=== PATIENT | male | born 1975 | race Caucasian/White ===

== ENCOUNTER 2016-10-27 13:11 | Emergency (ER) | payer SELFPAY ==
[~2016-10-27] VITALS: Ht 162.6 cm; Wt 77.5 kg
[~2016-10-27 13:11] MED LIST: CHLO25CA9 PO; CHLO5CAP2 PO; FAMO-96 PO; FAMO20TA18 PO; IBUP-1542 PO; LORA1TAB PO; OMEP20CA16 PO; ONDA-43 PO; ONDA4TAB14 PO; ONDA4TAB35 PO; ONDA4TAB8 PO; ONDA8TAB14 PO; PANT40TA3 PO; RANI150T9 PO
[2016-10-27 13:17] VITALS: Ht 162.6 cm; Wt 77.5 kg
[2016-10-27] MEDS ORDERED: ONDANSETRON 4 MG INJ IV STA (13:49)
[2016-10-27] MEDS ORDERED: SOD CHLORIDE 0.9% 1,000 ML IV ONE (14:00)
[2016-10-27] MEDS ORDERED: LORAZEPAM 1 MG TAB PO ONE (14:00)
[2016-10-27 14:11] LABS: BASOPHILS % 0.3 % (0.0-2.0); EOSINOPHILS % 0.3 % (0.0-7.0); HEMATOCRIT 47.2 % (42.0-52.0); HEMOGLOBIN 16.3 g/dl (14.0-18.0); MEAN CORPUSCULAR HEMOGLOBIN 28.1 pg (29.0-33.0); MEAN CORPUSCULAR HGB CONC 34.5 g/dl (32.0-37.0); MEAN CORPUSCULAR VOLUME 81.4 fl (82.0-101.0); MEAN PLATELET VOLUME 10.8 fl (7.4-10.4); MONOCYTE # 0.7 10^3/ul (0.3-0.9); NEUTROPHIL # 8.9 10^3/ul (1.6-7.5); NEUTROPHILS % 76.2 % (39.0-77.0); PLATELET COUNT 316 10^3/UL (140-415); RED CELL DISTRIBUTION WIDTH 13.7 % (11.5-14.5); WHITE BLOOD COUNT 11.6 10^3/ul (4.8-10.8)
[2016-10-27 14:31] LABS: ALBUMIN/GLOBULIN RATIO 1.38; BILIRUBIN,INDIRECT 1.1 mg/dl (0-1.1); BILIRUBIN,TOTAL 1.1 mg/dl (0.2-1.3); CALCIUM 9.5 mg/dl (8.4-10.2); CREATININE 0.94 mg/dl (0.61-1.24); POTASSIUM 4.1 mmol/L (3.5-5.1); TOTAL PROTEIN 8.6 g/dl (6.1-8.1)
--- NOTE | 2016-10-27 16:09 | RADRPT ---
PROCEDURE: XR Chest. CLINICAL INDICATION: Chest pain. TECHNIQUE: Single frontal chest x-ray. COMPARISON: 05/04/2015 FINDINGS: The lungs are clear. No focal opacification is seen. No pneumothorax or pleural effusion is seen. The cardiomediastinal silhouette is unremarkable. The osseous structures are grossly unremarkable. IMPRESSION: No evidence of acute cardiopulmonary disease. RPTAT: QQ .Rhys Hollins MD, MD Date Time Electronically viewed and signed by .Rhys Hollins MD, on 10/27/2016 16:08 .A/
--- NOTE | 2016-10-27 16:12 | ERD ---
ER Documentation Chief Complaint Date/Time DATE: 10/27/16 TIME: 16:11 Chief Complaint VOMITING , WHITE, YELLOW COLOR X2 DAYS ROS All systems reviewed and are negative except as per history of present illness. Medications Home Meds Active Scripts Electrolyte,Oral (Pedialyte) 1,000 Ml Solution, 100 ML PO Q6 Y for VOMITTING, # 1000 ML Prov:ANUJ ELLINGTON PA-C 10/27/16 Ondansetron Hcl* (Zofran*) 4 Mg Tablet, 4 MG PO Q6H for NAUSEA AND/OR VOMITING, #30 TAB Prov:ANUJ ELLINGTON PA-C 10/27/16 Famotidine* (Pepcid*) 20 Mg Tablet, 20 MG PO BID for 14 Days, TAB Prov:ANUJ ELLINGTON PA-C 10/27/16 Acetaminophen* (Tylophen*) 500 Mg Capsule, 1 CAP PO Q6H Y for PAIN AND OR ELEVATED TEMP, #30 CAP Prov:ANUJ ELLINGTON PA-C 10/27/16 Ibuprofen* (Motrin*) 600 Mg Tab, 600 MG PO Q6H Y for PAIN AND OR ELEVATED TEMP, #30 TAB Prov:ALICE YOUNG NP 09/14/15 Lorazepam* (Lorazepam*) 1 Mg Tablet, 1 MG PO Q8H Y for ANXIETY, #10 TAB Prov:ANTOLIN MULLINS DO 07/01/15 Ondansetron Hcl* (Zofran* ODT) 4 mg -ODT Tab.disper, 4 MG PO Q6 Y for NAUSEA AND /OR VOMITING, #10 TAB Prov:ANTOLIN MULLINS DO 07/01/15 Reported Medications Chlordiazepoxide* (Chlordiazepoxide*) 5 Mg Capsule, 5 MG PO DAILY, CAP 05/04/15 Allergies Allergies: Coded Allergies: No Known Allergy (Unverified , 10/27/16) PMhx/Soc History of Surgery: Yes (appendectomy 2004 [facility]) Anesthesia Reaction: No Hx Neurological Disorder: No Hx Respiratory Disorders: No Hx Cardiac Disorders: Yes (HTN) Hx Psychiatric Problems: Yes (depression) Hx Miscellaneous Medical Probl: Yes (ETOH dependent) Hx Alcohol Use: Yes (daily beer (average 12 beers/day) x 5 years) Hx Substance Use: No Hx Tobacco Use: No Physical Exam Vitals Vital Signs Date Time Temp Pulse Resp B/P Pulse Ox O2 Delivery O2 Flow Rate FiO2 10/27/16 13:17 97.5 112 20 144/89 96 Physical Exam Const: [] Head: Atraumatic Eyes: Normal Conjunctiva ENT: Normal External Ears, Nose and Mouth. Neck: Full range of motion..~ No meningismus. Resp: Clear to auscultation bilaterally Cardio: Regular rate and rhythm, no murmurs Abd: Soft, non tender, non distended. Normal bowel sounds Skin: No petechiae or rashes Back: No midline or flank tenderness Ext: No cyanosis, or edema Neur: Awake and alert Psych: Normal Mood and Affect Result Diagram: 10/27/16 1400 10/27/16 1400 Results 24 hrs Laboratory Tests Test 10/27/16 14:00 White Blood Count 11.610^3/ul Red Blood Count 5.8010^6/ul Hemoglobin 16.3g/dl Hematocrit 47.2% Mean Corpuscular Volume 81.4fl Mean Corpuscular Hemoglobin 28.1pg Mean Corpuscular Hemoglobin Concent 34.5g/dl Red Cell Distribution Width 13.7% Platelet Count 23705^3/UL Mean Platelet Volume 10.8fl Neutrophils % 76.2% Lymphocytes % 17.0% Monocytes % 6.0% Eosinophils % 0.3% Basophils % 0.3% Nucleated Red Blood Cells % 0.0/100WBC Neutrophils # 8.910^3/ul Lymphocytes # 2.010^3/ul Monocytes # 0.710^3/ul Eosinophils # 0.010^3/ul Basophils # 0.010^3/ul Nucleated Red Blood Cells # 0.010^3/ul Sodium Level 145mmol/L Potassium Level 4.1mmol/L Chloride Level 106mmol/L Carbon Dioxide Level 23mmol/L Anion Gap 20 Blood Urea Nitrogen 9mg/dl Creatinine 0.94mg/dl Glucose Level 103mg/dl Calcium Level 9.5mg/dl Total Bilirubin 1.1mg/dl Direct Bilirubin 0.00mg/dl Indirect Bilirubin 1.1mg/dl Aspartate Amino Transf (AST/SGOT) 53IU/L Alanine Aminotransferase (ALT/SGPT) 61IU/L Alkaline Phosphatase 119IU/L Troponin I < 0.012ng/ml Total Protein 8.6g/dl Albumin 5.0g/dl Globulin 3.60g/dl Albumin/Globulin Ratio 1.38 Lipase 58U/L Current Medications Medications (Trade) Dose Ordered Sig/Bessy Route PRN Reason Start Time Stop Time Status Last Admin Dose Admin Sodium Chloride (NS) 1,000 ml @ 1,000 mls/hr Q1H ONCE IV 10/27/16 14:00 10/27/16 14:59 DC 10/27/16 14:07 Ondansetron HCl (Zofran Inj) 4 mg ONCE STAT IV 10/27/16 13:49 10/27/16 13:51 DC 10/27/16 14:07 Lorazepam (Ativan) 1 mg ONCE ONCE PO 10/27/16 14:00 10/27/16 14:01 DC 10/27/16 14:07 DIAGNOSTIC IMAGING REPORT Patient: VAHE KRAFT : 1975 Age: 41 Sex: M MR #: [id number] DOS: 10/27/16 0000 Ordering MD: ANUJ ELLINGTON PA-C Location: [facility] Room/Bed: PROCEDURE: XR Chest. CLINICAL INDICATION: Chest pain. TECHNIQUE: Single frontal chest x-ray. COMPARISON: 05/04/2015 FINDINGS: The lungs are clear. No focal opacification is seen. No pneumothorax or pleural effusion is seen. The cardiomediastinal silhouette is unremarkable. The osseous structures are grossly unremarkable. IMPRESSION: No evidence of acute cardiopulmonary disease. RPTAT: QQ .Rhys Hollins MD, MD Date Time Electronically viewed and signed by .Rhys Hollins MD, MD on 10/27/2016 16:08 .A/ CC: ANUJ ELLINGTON PA-C Procedures/MDM Laboratory workupShows a mildly elevated white blood cell count. He is not anemic. Platelets are within normal limits. Sodium is very mildly elevated otherwise electrolytes are within normal limits. Glucose is normal limits. Liver enzymes are very mildly elevated. Lipase is negative. Upon and is negative. Low suspicion for acute PA. EKG read and interpreted by Dr. Mullins. [address] elevation. No QT prolongation. Normal sinus rhythm. Chest x ray is negative. Low suspicion for PE, pericarditis, pleural effusion, pneumothorax. Patient symptoms at this time most consistent with nausea and vomiting and epigastric pain possibly related to alcohol abuse versus gastritis, This is also likely the source of his chest pain. Patient is afebrile and otherwise well-appearing. There is no evidence of pancreatitis. Patient given IV fluids, Zofran here in the emergency department. He was given p.o. Ativan. and a p.o. challenge. Patient was asking for water. Jenniferne will be a given a prescription for Zofran, , Pedialyte, pepcid and Tylenol for home. I will not send the patient home with benzodiazepines given my concern for abuse. Patient has no evidence of DTs at this time and I do not feel that he requires admission at this time. Patient did indicate that he does go to but is recently had a setback. At this time the patient is stable for discharge and outpatient management. Patient should follow up with their PCP in the next 1-2 days. They may return to the emergency department sooner for any persistent or worsening of symptoms. Patient understood and agreed with the plan. Discussed the patient with Dr. Mullins and he is in agreement with the plan. Departure Diagnosis: Primary Impression: Nausea & vomiting Vomiting type: unspecified Vomiting Intractability: non-intractable Qualified Code: R11.2 - Non-intractable vomiting with nausea, unspecified vomiting type Additional Impression: Chest pain Chest pain type: unspecified Qualified Code: R07.9 - Chest pain, unspecified type Condition: ANUJ Wong PA-C Oct 27, 2016 16:12
[2016-10-27] MEDS ORDERED: FAMO-96 PO (16:39)
[2016-10-27] MEDS ORDERED: ACET500C5 PO (16:39)
[2016-10-27] MEDS ORDERED: ONDA4TAB8 PO (16:40)
[2016-10-27] MEDS ORDERED: ELEC100080 PO (16:40)
== END 2016-10-27 17:45 | disposition home or self-care (01) ==
LOC: FTE 13:11
DX: R11.2 Nausea with vomiting, unspecified (principal); R07.9 Chest pain, unspecified; I10 Essential (primary) hypertension
CPT/HCPCS: 36415; 71010; 80053; 83690; 84484; 85025; 93005; 96374; 99285; J2405; J7030

== ENCOUNTER 2016-12-07 20:51 | Emergency (ER) | payer SELFPAY ==
[~2016-12-07] VITALS: Ht 172.7 cm; Wt 78.0 kg
[~2016-12-07 20:51] MED LIST changes: +ACET500C5 PO; +ELEC100080 PO
[2016-12-07 20:59] VITALS: Ht 172.7 cm; Wt 78.0 kg
[2016-12-08] MEDS ORDERED: FAMOTIDINE 20 MG TAB PO STA (01:16)
[2016-12-08] MEDS ORDERED: SOD CHLORIDE 0.9% 1,000 ML IV STA (01:16)
[2016-12-08] MEDS ORDERED: LIDOCAINE/MYLANTA 40 ML BTL PO STA (01:16)
[2016-12-08] MEDS ORDERED: BELLADONNA/PHENOBARBITAL TAB PO STA (01:16)
--- NOTE | 2016-12-08 02:06 | RADRPT ---
PROCEDURE: XR Chest. CLINICAL INDICATION: Abdominal pain. TECHNIQUE: Single frontal view of the chest. COMPARISON: 12/08/2016. FINDINGS: The cardiomediastinal silhouette is within normal limits. Mild elevation of the right hemidiaphragm. Decreased lung inflation over interval accentuates the cardiac silhouette and pulmonary vascular ma rkings. The lungs are clear. No signs of pleural fluid or pneumothorax are seen. The osseous structu res and soft tissues are unremarkable. IMPRESSION: No evidence for active cardiopulmonary disease. RPTAT: [facility] Physician Ross Date Time Electronically viewed and signed by Physician Ross on 12/08/2016 02:05 RS/
--- NOTE | 2016-12-08 03:10 | ERD ---
ER Documentation Chief Complaint Chief Complaint etoh intoxication, vomiting, diarrhea HPI 41-year-old man with history of alcoholism for intoxication, he admits to drinking alcohol and has complaints of epigastric abdominal pain, burning, vomiting. He denies blood per rectum or melena, no fevers or chills, no chest pain or shortness of breath. ROS All systems reviewed and are negative except as per history of present illness. Medications Home Meds Active Scripts Omeprazole* (Omeprazole*) 20 Mg Capsule.dr, 20 MG PO DAILY, #30 Prov:BAUTISTA MORSE MD 12/08/16 Famotidine* (Famotidine*) 40 Mg Tablet, 40 MG PO HS, #30 TAB Prov:BAUTISTA MORSE MD 12/08/16 Mag Hydrox/Al Hydrox/Simeth (Maalox Advanced Suspension) 355 Ml Oral.susp, 2 TSP PO TID for PAIN, #24 OZ Prov:BAUTISTA MORSE MD 12/08/16 Acetaminophen* (Tylophen*) 500 Mg Capsule, 1 CAP PO Q6H Y for PAIN AND OR ELEVATED TEMP, #30 CAP Prov:ANUJ ELLINGTON PA-C 10/27/16 Discontinued Reported Medications Chlordiazepoxide* (Chlordiazepoxide*) 5 Mg Capsule, 5 MG PO DAILY, CAP 05/04/15 Discontinued Scripts Electrolyte,Oral (Pedialyte) 1,000 Ml Solution, 100 ML PO Q6 Y for VOMITTING, # 1000 ML Prov:ANUJ ELLINGTON PA-C 10/27/16 Ondansetron Hcl* (Zofran*) 4 Mg Tablet, 4 MG PO Q6H for NAUSEA AND/OR VOMITING, #30 TAB Prov:ANUJ ELLINGTON PA-C 10/27/16 Famotidine* (Pepcid*) 20 Mg Tablet, 20 MG PO BID for 14 Days, TAB Prov:ANUJ ELLINGTON PA-C 10/27/16 Famotidine* (Famotidine*) 20 Mg Tablet, 20 MG PO BID, #60 TAB Prov:CHANTELLE POOL 08/16/16 Ondansetron Hcl* (Zofran*) 4 Mg Tab, 4 MG PO Q4H Y for NAUSEA AND OR VOMITING, # 30 TAB Prov:CHANTELLE POOL 08/16/16 Ondansetron (Ondansetron Odt) 4 Mg Tab.rapdis, 4 MG PO Q6H Y for NAUSEA AND/OR VOMITING, #10 TAB Prov:JAQUAN CABALLERO PA-C 07/26/16 Ranitidine Hcl* (Zantac*) 150 Mg Tablet, 150 MG PO BID Y for EPIGASTRIC PAIN, # 30 TAB Prov:JAQUAN CABALLERO PA-C 07/26/16 Omeprazole* (Omeprazole*) 20 Mg Capsule.dr, 20 MG PO DAILY, #30 Prov:JAQUAN CABALLERO PA-C 07/26/16 Ondansetron Hcl* (Zofran*) 4 Mg Tablet, 4 MG PO Q8H Y for NAUSEA AND/OR VOMITING , #12 TAB Prov:NATHEN MURO DO 07/03/16 Ranitidine Hcl* (Zantac*) 150 Mg Tablet, 150 MG PO BID Y for EPIGASTRIC PAIN, # 30 TAB Prov:NATHEN MURO DO 07/03/16 Famotidine* (Pepcid*) 20 Mg Tablet, 20 MG PO BID for 4 Days, TAB Prov:ARIE MENDOZA MD 06/07/16 Lorazepam* (Lorazepam*) 1 Mg Tablet, 1 MG PO Q8, #6 TAB Prov:DORA THOMAS MD 05/12/16 Pantoprazole* (Protonix*) 40 Mg Tablet., 40 MG PO DAILY, #30 TAB Prov:DORA THOMAS MD 05/12/16 Ondansetron (Ondansetron Odt) 8 Mg Tab.rapdis, 8 MG PO Q6H Y for NAUSEA AND/OR VOMITING, #8 TAB Prov:DORA THOMAS MD 05/12/16 Ondansetron Hcl* (Zofran*) 4 Mg Tablet, 4 MG PO Q8H Y for NAUSEA AND/OR VOMITING , #15 TAB Prov:NATHEN MURO DO 03/09/16 Ranitidine Hcl* (Zantac*) 150 Mg Tablet, 150 MG PO BID Y for EPIGASTRIC PAIN, # 30 TAB Prov:NATHEN MURO DO 03/09/16 Chlordiazepoxide* (Chlordiazepoxide*) 25 Mg Capsule, 25 MG PO Q8 for 6 Days, CAP 50mg PO BID x 2 days 25mg PO BID x 2 days 25mg PO Daily x 2 days THEN STOP Prov:ARIE MENDOZA MD 02/11/16 Ranitidine Hcl* (Zantac*) 150 Mg Tablet, 150 MG PO BID Y for EPIGASTRIC PAIN, # 30 TAB Prov:JAYPAULA HernandezLex 01/17/16 Ibuprofen* (Motrin*) 600 Mg Tab, 600 MG PO Q6H Y for PAIN AND OR ELEVATED TEMP, #30 TAB Prov:ALICE YOUNG NP 09/14/15 Lorazepam* (Lorazepam*) 1 Mg Tablet, 1 MG PO Q8H Y for ANXIETY, #10 TAB Prov:ANTOLIN MULLINS DO 07/01/15 Ondansetron Hcl* (Zofran* ODT) 4 mg -ODT Tab.disper, 4 MG PO Q6 Y for NAUSEA AND /OR VOMITING, #10 TAB Prov:ANTOLIN MULLINS DO 07/01/15 Allergies Allergies: Coded Allergies: No Known Allergy (Unverified , 12/08/16) PMhx/Soc Alcoholism, gastritis History of Surgery: Yes (appendectomy 2003 [facility]) Anesthesia Reaction: No Hx Neurological Disorder: No Hx Respiratory Disorders: No Hx Cardiac Disorders: Yes (HTN) Hx Psychiatric Problems: Yes (depression) Hx Miscellaneous Medical Probl: Yes (ETOH dependent) Hx Alcohol Use: Yes (daily beer (average 12 beers/day) x 5 years) Hx Substance Use: No Hx Tobacco Use: No Smoking Status: Never smoker FmHx Family History: No diabetes Physical Exam Vitals Vital Signs Date Time Temp Pulse Resp B/P Pulse Ox O2 Delivery O2 Flow Rate FiO2 12/08/16 06:02 98.2 95 20 140/92 97 Room Air 12/07/16 20:59 97.8 118 20 145/99 98 Physical Exam GENERAL: Well-developed, well-nourished, appears dehydrated, afebrile, intoxicated HEENT: Dry mucous membranes, pink conjunctiva, no cervical spine tenderness or step-off deformities, no goiter, no jaundice or icterus, extraocular movements intact without pain. No submandibular induration, and no pharyngeal erythema NEURO: Alert and oriented 3, cranial nerves II through XII intact bilaterally, pupils equal round reactive to light, no focal deficits or facial asymmetry, sensation intact distally Strength 5/5 in upper and lower extremities bilaterally CARDIAC: Tachycardic and regular, no murmurs rubs or gallops LUNGS: Clear bilaterally no wheezing crackles or stridor ABDOMEN: Soft nontender, no guarding, no rigidity, no rebound, no psoas sign no obturator sign. Normoactive bowel sounds SKIN: Warm and dry to touch, no abrasions, contusions, or hematomas, no lacerations, no ecchymosis, no target lesions, and without ulcers EXTREMITIES: No clubbing cyanosis or edema, calves are bilaterally symmetrical, no Homans sign, no popliteal cord sign. Distal pulses equal and bilateral PSYCH: Normal affect without agitation or irritability Result Diagram: 12/08/1630112/08/16301 Results 24 hrs Laboratory Tests Test 12/08/16 03:02 White Blood Count 4.310^3/ul Red Blood Count 5.3510^6/ul Hemoglobin 15.3g/dl Hematocrit 44.3% Mean Corpuscular Volume 82.8fl Mean Corpuscular Hemoglobin 28.6pg Mean Corpuscular Hemoglobin Concent 34.5g/dl Red Cell Distribution Width 13.3% Platelet Count 38347^3/UL Mean Platelet Volume 11.2fl Neutrophils % 51.2% Lymphocytes % 37.8% Monocytes % 8.2% Eosinophils % 1.9% Basophils % 0.7% Nucleated Red Blood Cells % 0.0/100WBC Neutrophils # 2.210^3/ul Lymphocytes # 1.610^3/ul Monocytes # 0.410^3/ul Eosinophils # 0.110^3/ul Basophils # 0.010^3/ul Nucleated Red Blood Cells # 0.010^3/ul Sodium Level 145mmol/L Potassium Level 3.6mmol/L Chloride Level 104mmol/L Carbon Dioxide Level 22mmol/L Anion Gap 23 Blood Urea Nitrogen 8mg/dl Creatinine 0.86mg/dl Glucose Level 92mg/dl Calcium Level 9.3mg/dl Total Bilirubin 1.0mg/dl Direct Bilirubin 0.00mg/dl Indirect Bilirubin 1.0mg/dl Aspartate Amino Transf (AST/SGOT) 51IU/L Alanine Aminotransferase (ALT/SGPT) 55IU/L Alkaline Phosphatase 98IU/L Troponin I < 0.012ng/ml Total Protein 8.4g/dl Albumin 5.2g/dl Globulin 3.20g/dl Albumin/Globulin Ratio 1.62 Lipase 70U/L Ethyl Alcohol Level 142.0mg/dl Current Medications Medications (Trade) Dose Ordered Sig/Bessy Route PRN Reason Start Time Stop Time Status Last Admin Dose Admin Sodium Chloride (NS) 1,000 ml @ 1,000 mls/hr Q1H STAT IV 12/08/16 01:16 12/08/16 02:15 DC 12/08/16 03:00 Famotidine (Pepcid) 40 mg ONCE STAT PO 12/08/16 01:16 12/08/16 01:19 DC 12/08/16 03:00 Miscellaneous Medication (Gi Cocktail (2)) 40 ml ONCE STAT PO 12/08/16 01:16 12/08/16 01:19 DC 12/08/16 03:00 Belladonna/ Phenobarbital () 2 tab ONCE STAT PO 12/08/16 01:16 12/08/16 01:19 DC 12/08/16 03:00 Ondansetron HCl (Zofran Inj) 4 mg STK-MED ONCE .ROUTE 12/08/16 05:57 12/08/16 05:58 DC Ondansetron HCl (Zofran Inj) 4 mg ONCE ONCE IV 12/08/16 06:01 12/08/16 06:05 DC 12/08/16 06:05 Chlordiazepoxide (Librium) 10 mg ONCE ONCE PO 12/08/16 06:30 12/08/16 06:31 Procedures/MDM IV line was established patient was placed on director of cardiac cath lab rhythm strip revealed a sinus tachycardia at 120 bpm with upright P and T waves. Patient was afebrile I administered 1 L normal saline intravenously, famotidine 40 mg p.o., Zofran 4 mg IV, and GI cocktail 30 cc p.o. EKG performed, read by me: 90 bpm, normal sinus rhythm, normal axis, no acute ST segment changes, narrow QRS complex, with good R-wave progression in precordial leads. CBC and electrolytes were normal, liver function tests were normal, lipase normal, troponin negative, ethanol level elevated. One AP view of the chest performed, read by me reveals no acute infiltrates, normal mediastinum, sharp costophrenic and cardiac borders, no air under the diaphragm. Otherwise unremarkable chest x-ray. Observation Note: Time: 5 hours Family Hx: No Hypertension Evaluation: Multiple exams showed improving symptoms and no evidence of decreasing mental status. Vital signs remained normal. For concern of early alcohol withdrawal I administered chlordiazepoxide 10 mg p.o. 1 Differential diagnoses considered, included but not limited to acute coronary syndrome, pulmonary embolism, aortic dissection, abdominal aortic aneurysm, sepsis, stroke, meningitis, encephalitis, pneumonia, appendicitis, cholecystitis , bowel obstruction, pyelonephritis, nephrolithiasis, cystitis, as well as metabolic, hematologic, and electrolyte abnormalities. As well as abscess, cellulitis, fractures, and dislocations. Patient feels much better at this time, and vital signs are normal, symptoms have improved. I did give strict instructions to return to the ED if symptoms continue or worsen, patient will otherwise follow-up with primary care physician. Patient understood instructions and agreed to plan. Disclaimer: Inadvertent spelling and grammatical errors are likely due to EHR/ dictation software use and do not reflect on the overall quality of patient care. Also, please note that the electronic time recorded on this note does not necessarily reflect the actual time of the patient encounter. Departure Diagnosis: Primary Impression: Alcoholic intoxication Complication of substance-induced condition: uncomplicated Qualified Code: F10.920 - Alcoholic intoxication without complication Additional Impressions: Abdominal pain Abdominal location: epigastric Qualified Code: R10.13 - Epigastric pain Alcohol withdrawal syndrome Complication of substance-induced condition: uncomplicated Qualified Code: F10.230 - Alcohol withdrawal syndrome without complication Condition: BAUTISTA Bautista MD Dec 08, 2016 03:10
[2016-12-08] MEDS ORDERED: OMEP20CA16 PO (03:47)
[2016-12-08] MEDS ORDERED: FAMO40TA52 PO (03:47)
[2016-12-08] MEDS ORDERED: MAG355OR14 PO (03:47)
[2016-12-08] MEDS ORDERED: ONDANSETRON 4 MG INJ ONE (05:57)
[2016-12-08] MEDS ORDERED: ONDANSETRON 4 MG INJ IV ONE (06:01)
[2016-12-08 06:02] VITALS: TEMP 98.2
[2016-12-08] MEDS ORDERED: CHLORDIAZEPOXIDE 5 MG CAP PO ONE (06:30)
[2016-12-08] MEDS ORDERED: ONDANSETRON 4 MG INJ IV STA (08:53)
[2016-12-08 13:29] VITALS: BP 131/71; PULSE 91; RESP 20
== END 2016-12-08 13:30 | disposition home or self-care (01) ==
LOC: E/R 20:51
DX: F10.230 Alcohol dependence with withdrawal, uncomplicated (principal); R10.13 Epigastric pain; I10 Essential (primary) hypertension
CPT/HCPCS: 36415; 71010; 80053; 80306; 83690; 84484; 85025; 93005; 96374; 96376; 99285; J2405; J7030

== ENCOUNTER 2018-05-15 09:50 | Emergency (ER) | payer SELFPAY ==
[~2018-05-15] VITALS: Ht 165.1 cm; Wt 99.3 kg
[~2018-05-15 09:50] MED LIST changes: -CHLO25CA9 PO; -CHLO5CAP2 PO; -ELEC100080 PO; -FAMO-96 PO; -FAMO20TA18 PO; +FAMO40TA5 PO; -IBUP-1542 PO; -LORA1TAB PO; +MAG355OR14 PO; -ONDA-43 PO; -ONDA4TAB14 PO; -ONDA4TAB35 PO; -ONDA4TAB8 PO; -ONDA8TAB14 PO; -PANT40TA3 PO; -RANI150T9 PO
[2018-05-15 10:06] VITALS: Ht 165.1 cm; Wt 99.3 kg
[2018-05-15] MEDS ORDERED: ONDANSETRON 4 MG INJ IV STA (12:52)
[2018-05-15] MEDS ORDERED: ONDA4TAB14 PO (12:54)
[2018-05-15] MEDS ORDERED: LORAZEPAM 2 MG INJ IV ONE (13:00)
--- NOTE | 2018-05-15 14:19 | ERD ---
ER Documentation Chief Complaint Chief Complaint shaking, abd. pain, n/v, been drinking alcohol for 1 week HPI Patient is a 42-year-old male with alcohol abuse who presents saying that he has been drinking alcohol for the past 1 week. He said that he is "shaking a lot". He says he has not been eating. The patient said that he has been drinking Armando about 10/day. He has had no treatment as of yet. He does report vomiting. Upon review of old medical records the patient has multiple visits to the ER for alcohol related complaints. He does not currently have a primary doctor. ROS All systems reviewed and are negative except as per history of present illness. Medications Home Meds Active Scripts Ondansetron (Ondansetron Odt) 4 Mg Tab.rapdis, 4 MG PO Q6H PRN for NAUSEA AND/OR VOMITING, #10 TAB Prov:JHONATHAN LONDONO MD 05/15/18 Discontinued Scripts Omeprazole* (Omeprazole*) 20 Mg Capsule.dr, 20 MG PO DAILY, #30 Prov:BAUTISTA MORSE MD 12/08/16 Famotidine* (Famotidine*) 40 Mg Tablet, 40 MG PO HS, #30 TAB Prov:BAUTISTA MORSE MD 12/08/16 Mag Hydrox/Al Hydrox/Simeth (Maalox Advanced Suspension) 355 Ml Oral.susp, 2 TSP PO TID for PAIN, #24 OZ Prov:BAUTISTA MORSE MD 12/08/16 Acetaminophen* (Tylophen*) 500 Mg Capsule, 1 CAP PO Q6H PRN for PAIN AND OR ELEVATED TEMP, #30 CAP Prov:ANUJ ELLINGTON PA-C 10/27/16 Allergies Allergies: Coded Allergies: No Known Allergy (Unverified , 05/15/18) PMhx/Soc History of Surgery: Yes (appendectomy 2003) Anesthesia Reaction: No Hx Neurological Disorder: No Hx Respiratory Disorders: No Hx Cardiac Disorders: Yes (HTN) Hx Psychiatric Problems: Yes (depression) Hx Miscellaneous Medical Probl: Yes (ETOH dependent) Hx Alcohol Use: Yes (daily beer (average 12 beers/day) x 5 years) Hx Substance Use: No Hx Tobacco Use: No Smoking Status: Never smoker FmHx Family History: diabetes Physical Exam Vitals Vital Signs Date Temp Pulse Resp B/P (MAP) Pulse Ox O2 O2 Flow FiO2 Time Delivery Rate 05/15/18 99.3 125 20 164/97 96 10:06 (119) Physical Exam Const: No acute distress Head: Atraumatic Eyes: Normal Conjunctiva ENT: Normal External Ears, Nose and Mouth. Neck: Full range of motion. No meningismus. Resp: Clear to auscultation bilaterally Cardio: Tachycardic rate without murmur Abd: Soft, non tender, non distended. Normal bowel sounds Skin: No petechiae or rashes Back: No midline or flank tenderness Ext: No cyanosis, or edema Neur: Awake and alert, no hallucinations Psych: Normal Mood and Affect Results 24 hrs Current Medications Medications Dose Sig/Bessy Start Time Status Last (Trade) Ordered Route PRN Stop Time Admin Dose Reason Admin Lorazepam 1 mg ONCE ONCE 05/15/18 DC 05/15/18 (Ativan) IV 13:00 05/15/18 13:14 13:02 Ondansetron 4 mg ONCE STAT 05/15/18 DC 05/15/18 HCl (Zofran IV 12:52 05/15/18 13:14 Inj) 12:53 Procedures/MDM Patient is a 42-year-old male who presents for alcohol withdrawal. I see no signs of acute delirium tremens at this time. The patient is well-appearing and alert. He was given Ativan and Zofran and will be discharged. He will be given information for the local detox centers and was instructed to follow-up immed iately after discharge. The patient can return for any worsening symptoms. Departure Diagnosis: Primary Impression: Alcohol withdrawal syndrome Complication of substance-induced condition: uncomplicated Qualified Codes: F10.230 - Alcohol dependence with withdrawal, uncomplicated Condition: Fair Patient Instructions: Alcohol Withdrawal Referrals: Detox facilities Additional Instructions: Go directly to one of the detox facilities provided to you today for detox. JHONATHAN LONDONO MD May 15, 2018 14:19
[2018-05-15] MEDS ORDERED: PANTOPRAZOLE (EC) 40 MG TAB PO ONE (14:30)
[2018-05-15] MEDS ORDERED: LIDOCAINE/MYLANTA 40 ML BTL PO ONE (14:30)
[2018-05-15 15:20] VITALS: BP 158/78; PULSE 73; RESP 22
== END 2018-05-15 15:20 | disposition home or self-care (01) ==
LOC: E/R 09:50
DX: F10.230 Alcohol dependence with withdrawal, uncomplicated (principal); I10 Essential (primary) hypertension
CPT/HCPCS: 96374; 96375; 99284; J2060; J2405